=== PATIENT | male | born 1970 | race Caucasian/White ===

== ENCOUNTER → 2019-05-26 13:20 | Outpatient (CLI) | payer BC ==
[~2019-05-26 13:20] MED LIST: PRAVASTATIN SOD10 MG PO
[2019-06-16 12:08] VITALS: BMI 22.6
== END | disposition home or self-care (01) ==
LOC: D.HCCARDIO 13:20
PROVIDERS: ATTEND Internal Medicine Cardiovascular Disease
DX: R94.31 Abnormal electrocardiogram [ECG] [EKG] (principal)

== ENCOUNTER → 2019-06-08 09:30 | Outpatient (CLI) | payer BC ==
[2019-06-16 12:08] VITALS: BMI 22.6
== END | disposition home or self-care (01) ==
LOC: D.HCCARDIO 09:30
PROVIDERS: ATTEND Internal Medicine Cardiovascular Disease
DX: R94.39 Abnormal result of other cardiovascular function study (principal)

== ENCOUNTER 2019-06-16 11:32 | Outpatient (CLI) | payer BC ==
[~2019-06-16] VITALS: Ht 167.6 cm; Wt 63.6 kg
--- NOTE | ~2019-06-16 | HEMODYNAMI ---
PATIENT:LAMONT WHYTE MEDICAL RECORD: [id number] : 70 LOCATION:DRIVER ADMISSION DATE: 06/16/19 Generatedon:06/16/201914:01 Patient name: LAMONT WHYTE Patient #: [id number] SSN: : Date of study: 06/16/2019 Page: Of Hemodynamic Procedure Report Patient Data Patient Demographics Procedure consent was obtained First Name: LAMONT Gender: Male Last Name: PATO : 1970 Patient #: [id number] Age: 48 year(s) Race: Unknown Additional ID: [id number] Contact details Address: [address] [place] [address] State: [place] City: [place] Zip code: [address] Past Medical History Allergies: No known allergies Admission Admission Data Admission Date: 06/16/2019 Admission Time: 11:32 Arrival Date: 06/16/2019 Arrival Time: 0:00 Admit Source: Other Insurance Payor: Private health insurance [facility] #: [id number] Height (in.): 66 BSA: 1.72 (m2) Height (cm.): 167.64 BMI: 22.64 (kg/m2) Weight (lbs.): 140.28 Weight (kg.): 63.63 Lab Results Lab Result Date: 06/16/2019 Lab Result Time: 0:00 Biochemistry Name Units Result Min Max BUN mg/dl 8 --(*---)-- 7 18 Creatinine mg/dl 1 --(--*-)-- 0.6 1.3 eGFR ml/min 85.31057 -*(----)-- 90 120 NONAFRICAN CBC Name Units Result Min Max Hematocrit % 46.5 --(-*--)-- 42 54 Hemoglobin g/dl 16 --(--*-)-- 13.5 17.5 Procedure Procedure Types Cath Procedure Diagnostic Procedure LHC LHC w/Coronaries Procedure Description Procedure Date Procedure Date: 06/16/2019 Procedure Start Time: 13:45 Procedure End Time: 13:58 Procedure Staff Name Function Vel Mckinney MD Performing Physician Sherry Loco RT Monitor Ban Preciado RT Monitor Elsie Lim RN Nurse Binu Chang RT Scrub Procedure Data Cath Procedure Fluoroscopy Diagnostic fluoroscopy Total fluoroscopy Time: 3.4 time: 3.4 min min Diagnostic fluoroscopy Total fluoroscopy dose: 307 dose: 307 mGy mGy Contrast Material Contrast Material Type Amount (ml) Isovue 300 57 Entry Location Entry Primary Successful Side Size Upsize Upsize Entry Closure Coreas ccessful Closure Location (Fr) 1 (Fr) 2 (Fr) Remarks Device Remarks Radial Right 6 Fr Mechanical artery Short Compression Estimated blood loss: 5 ml Diagnostic catheters Device Type Used For End Catheter Placement DIAGNOSTIC Dread 110cm Procedure 5Fr catheter ([id number]) DIAGNOSTIC Pep 110cm 5 Procedure Fr catheter ([id number]) Procedure Complications No complications Procedure Medications Medication Administration Route Dosage Oxygen etCO2 Nasal cannula 2 l/min Lidocaine 2% added to field 20 Heparin Flush Bag added to field 2 bags (1000units/500ml NS) 0.9% NaCl I.V. 100 ml/hr Versed I.V. 2 mg Fentanyl I.V. 50 mcg Versed I.V. 2 mg Fentanyl I.V. 50 mcg Radial Cocktail I.A. 1 syringe (Verapamil 2mg/Nitro 400mcg/Heparin 1500units) Hemodynamics Rest BSA: 1.72 (m2) HGB: 16 (g/dl) O2 Consumption: Estimated: 198.78 (ml/min) O2 Cons umption indexed: Estimated:115.57 (ml/min/m) Heart Rate: 58 (bpm) Pressure Samples Time Site Value (mmHg) Purpose Heart Use Rate(bpm) 13:49 LV 149/-18,-1 Snapshot 105 13:50 AO 110/62(82) Pullback 96 13:50 LV 124/-12,-6 Pullback 96 Gradients Valve Time Site 1 Site 2 Mean SEP/DFP Peak To Heart Use (mmHg) (sec/min) Peak Rate (mmHg) (bpm) Aortic 13:50 LV AO 13 6 14 96 124/-12,-6 110/62(82) Calculations Valve P-P Mean Valve Index Valve Source Name Gradient Area Flow (cm2) Aortic 14 13 14 13 Snapshots Pre Cath Intra NCS Post Cath Vital Signs Time Heart Resp SPO2 etCO2 NIBP (mmHg) Rhythm Pain Sedation Rate (ipm) (%) (mmHg) Status Level (bpm) 13:37:47 62 18 98 29.9 143/92(111) NSR 0 (11) 10(A) , No pain 13:42:00 78 14 98 38.1 130/85(106) NSR 0 (11) 10(A) , No pain 13:46:10 69 17 96 40.4 120/80(108) NSR 0 (11) 10(A) , No pain 13:50:18 85 17 95 19.4 94/68(90) NSR 0 (11) 9(A) , No pain 13:54:20 81 16 93 0 101/66(87) NSR 0 (11) 9(A) , No pain 13:58:24 81 18 95 41.1 103/71(81) NSR 0 (11) 10(A) , No pain Medications Time Medication Route Dose Verified Delivered Reason Notes Effectiveness by by 13:38:45 Oxygen etCO2 2 l/min Vel Buffie used for Nasal Hank Lim RN procedure cannula 13:38:51 Lidocaine 2% added 20ml Vel Vel for local to vial Hank Mckinney MD anesthetic field 13:38:59 Heparin Flush added 2 bags Vel Vel used for Bag to Hank Mckinney MD procedure (1000units/500ml field NS) 13:39:07 0.9% NaCl I.V. 100 Vel Buffie Per ml/hr Hank Lim RN physician 13:43:52 Versed I.V. 2 mg Vel Buffie for sedation Hank Lim RN 13:43:59 Fentanyl I.V. 50 mcg Vel Buffie for sedation Hakn Lim RN 13:47:07 Versed I.V. 2 mg Vel Buffie for sedation Hank Lim RN 13:47:11 Fentanyl I.V. 50 mcg Vel Buffie for sedation Hank Lim RN 13:48:17 Radial Cocktail I.A. 1 Vel Vel for (Verapamil syringe Hank Mckinney MD vasodilation 2mg/Nitro 400mcg/Heparin 1500units) Procedure Log Time Note 13:20:19 Elsie Lim RN sent for patient. Start room use. 13:27:52 Admit Source: Other 13:28:16 Procedure Status Elective Heart Cath (OP). 13:28:22 Time tracking: Regular hours (M-F 7:00 - 5:00) 13:28:27 Plan of Care:Hemodynamics will remain stable., Cardiac rhythm will remain stable., Comfort level will be maintained., Respiratory function will remain adequate., Patient/ family verbilizes understanding of procedure., Procedure tolerated without complication., Recovers from procedure without complications.. 13:29:15 Patient received from Pre/Post Procedure Room to CCL 1 Alert and oriented. Tansferred to table in Supine position. 13:29:19 Signed procedure consent form obtained from patient. 13:29:20 Warm blankets applied, and gen hugger turned on for patient comfort. 13:29:21 Correct patient and procedure confirmed by team. 13:29:21 ECG and BP/O2 sat monitors applied to patient. 13:29:54 Pre-procedure instructions explained to patient. 13:29:55 Pre-op teaching completed and patient verbalized understanding. 13:29:58 Family in waiting room. 13:30:00 Patient NPO since Midnight. 13:30:09 Patient allergic to No known allergies 13:32:12 Lab Result : BUN 8 mg/dl 13:32:12 Lab Result : Creatinine 1 mg/dl 13:32:12 Lab Result : eGFR NONAFRICAN 85.22175 ml/min 13:32:12 Lab Result : Hemoglobin 16 g/dl 13:32:12 Lab Result : Hematocrit 46.5 % 13:32:16 Lab results completed and on chart. 13:32:50 Stress Test: yes; abnormal st depression in inferior 13:35:32 Arrival Date: 06/16/2019 12:00:00 AM 13:35:37 Insurance Payor : Private health insurance 13:35:48 Patient Height : 66 inches 13:35:54 Patient Weight : 140.28 lbs 13:36:02 Diagnostic Cath Status : Elective 13:36:33 Risk of Mortality: .1 13:36:36 Risk of blood transfusion: .9 13:36:39 Risk of CHARLY: 1.5 13:36:46 Vital chart was started 13:36:48 Baseline sample Acquired. 13:36:50 Full Disclosure recording started 13:36:58 Is the patient allergic to Iodine/contrast media? No. 13:36:59 Was the patient premedicated? Yes 13:37:01 Is patient on blood thinner?No 13:37:04 Patient diabetic? No. 13:37:06 If diabetic: On Metformin? N/A 13:37:12 Previous problem with sedation/anesthesia? No ? 13:37:13 Snore? Yes 13:37:14 Sleep apnea? No 13:37:16 Deviated septum? No 13:37:17 Opens mouth fully? Yes 13:37:18 Sticks out tongue? Yes 13:37:20 Airway obstruction? No ? 13:37:22 Dentures? No ? 13:37:30 Pre procedure: right dorsailis pedis pulse 2+ Normal; easily identifiable; not easily obliterated 13:37:33 Patient pain scale 0/10 ?. 13:37:36 Modified Kwasi's test Ulnar < 7 seconds 13:38:08 IV patent on arrival in left antecubital with 0.9% NaCl at [facility]. 13:38:17 Right Radial & Right Groin area was prepped with chlora-prep and draped in sterile fashion 13:38:20 Alarms reviewed by R. N. 13:38:20 Sharps counted by scrub and verified by R.N. 13:38:41 ACC Patient presents with No angina; no symptoms CCS Anginal Class 1--Ordinary physical activity does not cause angina, angina occurs with strenuos, rapid, or prolonged activity.. 13:38:45 Oxygen 2 l/min etCO2 Nasal cannula was administered by Elsie Lim RN; used for procedure; Verbal order read back and verified. 13:38:51 Lidocaine 2% 20ml vial added to field was administered by Vel Mckinney MD; for local anesthetic; Verbal order read back and verified. 13:38:57 Rhythm: sinus rhythm 13:38:59 Heparin Flush Bag (1000units/500ml NS) 2 bags added to field was administered by Vel Mckinney MD; used for procedure; Verbal order read back and verified. 13:39:07 0.9% NaCl 100 ml/hr I.V. was administered by Elsie Lim RN; Per physician; Verbal order read back and verified. 13:39:09 Use device set Radial Dx or PCI 13:39:11 ACIST Syringe (45931) opened to sterile field. 13:39:12 Medline Cath Pack ([id number]) opened to sterile field. 13:39:13 Bag Decanter () opened to sterile field. 13:39:14 ACIST Hand Control (09440) opened to sterile field. 13:39:15 ACIST Manifold (72359) opened to sterile field. 13:39:18 Tegaderm 4 x 4 (1626W) opened to sterile field. 13:39:19 MBrace Wrist Support ([id number]) opened to sterile field. 13:39:24 NEEDLE Cook 21G 4cm Radial (T86700) opened to sterile field. 13:39:25 EMERALD Guide Wire (163-753) opened to sterile field. 13:39:27 SHEATH 6FR RAIN (6971829) opened to sterile field. 13:42:47 --------ALL STOP TIME OUT------ 13:42:48 Final Timeout: patient, procedure, and site verified with staff and physician. All members of the team are in agreement. 13:42:50 Right Radial & Right Groin site verified by team. 13:42:53 Fire Safety Assessment: A--An alcohol-based skin anteseptic being used preoperatively., C--Open oxygen or nitrous oxide is being used., D--An ESU, laser, or fiber-optic light is being used. 13:42:57 Physical assessment completed. ASA score P 2 - A patient with mild systemic disease as per Vel Mckinney MD. 13:43:00 2) 60-89 Mildly reduced kidney function, and other findings (as for stage 1) point to kidney disease. 13:43:05 Maximum allowable contrast dose (3.7 X eGFR X 0.75)236 ml. 13:43:09 Sedation plan: IV Moderate Sedation Medication:Versed, Fentanyl 13:43:52 Versed 2 mg I.V. was administered by Elsie Lim RN; for sedation; Verbal order read back and verified. 13:43:59 Fentanyl 50 mcg I.V. was administered by Elsie Lim RN; for sedation; Verbal order read back and verified. 13:45:35 Procedure started. 13:45:56 Local anesthetic to right radial artery with Lidocaine 2% by Vel Mckinney MD.INITIAL ACCESS ONLY 13:46:39 Zero performed for pressure channel P1 13:47:07 Versed 2 mg I.V. was administered by Elsie Lim RN; for sedation; Verbal order read back and verified. 13:47:11 Fentanyl 50 mcg I.V. was administered by Elsie Lim RN; for sedation; Verbal order read back and verified. 13:47:15 Zero performed for pressure channel P1 13:47:39 A 6 Fr Short sheath was inserted into the Right Radial artery 13:47:50 A DIAGNOSTIC Dread 110cm 5Fr catheter (611254) was advanced over the wire and used for Procedure. 13:48:17 Radial Cocktail (Verapamil 2mg/Nitro 400mcg/Heparin 1500units) 1 syringe I.A. was administered by Vel Mckinney MD; for vasodilation; Verbal order read back and verified. 13:48:46 LV gram done using MILLS 13:48:49 Injector settings: Ml/sec: 5, Volume: 15, 13:49:52 LV hemodynamics recorded. 13:50:06 EF : 60 % 13:50:59 RCA angiography performed. 13:52:50 Catheter exchanged over wire. 13:53:05 UNABLE TO ENGAGE LCA 13:53:09 A DIAGNOSTIC Pep 110cm 5 Fr catheter (667897) was advanced over the wire and used for Procedure. 13:54:12 LCA angiography performed. 13:55:08 Catheter removed. 13:55:11 ACCDominant side:Right 13:55:27 ZEPHYR REGULAR TR BAND (771238) opened to sterile field. 13:55:42 Sheath removed intact; hemostasis achieved with Mechanical Compression to the Right Radial artery. 13:55:46 Procedure ended.(Physican Out) 13:56:24 Fluoroscopy time 03.40 minutes. 13:56:29 Fluoroscopy dose: 307 mGy 13:56:29 Flurop Dose total: 307 13:56:35 Dose Area Product 73546 mGy/cm. 13:56:39 Contrast amount:Isovue 300 57ml. 13:56:41 Maximum allowable dose exceeded? No. 13:56:43 Sharps counted by scrub and verified by R.N. 13:56:46 Liberty band inflated with 10cc of air. 13:56:56 Post Procedure Pulses reassessed and unchanged 13:57:01 Post procedure: right dorsailis pedis pulse 2+ Normal; easily identifiable; not easily obliterated. 13:57:08 Post procedure rhythm: unchanged. 13:57:12 Estimated blood loss: 5 ml 13:57:20 Post procedure instruction explained to patient.Patient verbalizes understanding. 13:57:21 Patient needs reinforcement of post procedure teaching. 13:58:07 Procedure and supply charges have been captured, reviewed, submitted and are correct. 13:58:12 Procedure Complication : No complications 13:58:14 Vital chart was stopped 13:58:17 [facility] Findings: mild to moderate CAD (<70%) 13:58:19 Operative report dictated upon procedure completion. 13:58:19 See physician's report for complete and final results. 13:58:22 Report given to Pre/Post Procedure Room. 13:58:25 Patient transfered to Pre/Post Procedure Room with Stretcher. 13:58:28 Procedure ended. 13:58:28 Full Disclosure recording stopped 13:59:33 End room use (Document Last) 14:00:36 End room use (Document Last) 14:00:54 End room use (Document Last) Device Usage Item Name Manufacture Quantity Catalog Hospital Part Current Minima l Lot# / Number Charge Number Stock Stock Serial# Code ACIST Acist 1 79524 166593 316138 [id number] 20 Syringe Medical (90622) Systems Inc Medline Medline 1 [id number] 498511 71949 216291 5 Cath Pack ([id number]) Bag Microtek 1 222971 02348 524859 5 Decanter Medical Inc. () ACIST Hand Acist 1 51679 069244 577100 948843 5 Control Medical (05360) Systems Inc ACIST Acist 1 17096 641272 567383 648240 5 Manifold Medical (98477) Systems Inc Tegaderm 4 3M 1 1626W 719223 847676 646371 5 x 4 (1626W) MBrace Advanced 1 140-0250-00 474379 96631 511912 5 Wrist Vascular Support Dynamics ([id number]) NEEDLE Cook Cook Medical 1 R12545 843608 604737 438099 5 21G 4cm Radial (C52927) EMERALD Cardinal 1 502-455 216363 736965 102655 5 Guide Wire [facility] (495-072) SHEATH 6FR Cardinal 1 2981180 134676 7694346 419149 5 [facility] (4751009) DIAGNOSTIC Terumo 1 40-8771 614599 210844 999218 5 Dread 110cm 5Fr catheter (038563) DIAGNOSTIC Terumo 1 40-7343 310726 169933 983945 5 Pep 110cm 5 Fr catheter (501802) ZEPHYR Cardinal 1 571164 125704 3882377 685034 5 REGULAR TR Health BAND (034848) Signature Audit [place] Stage Time Signature Unsigned Intra-Procedure 06/16/2019 Ban Preciado 2:00:36 PM RT(R) Intra-Procedure 06/16/2019 Elsie Lim RN 2:00:54 PM Intra-Procedure 06/16/2019 Vel Mckinney MD 2:01:12 PM [facility] [address] [facility] [place] [address]
[2019-06-16] MEDS ORDERED: PRAVASTATIN SOD10 MG PO (11:55)
[2019-06-16 12:08] VITALS: BP 158/86; Ht 167.6 cm; Wt 63.6 kg
[2019-06-16 12:25] LABS: EOSINOPHILS 3.6 % (0-7); HEMATOCRIT 46.5 % (42.0-54.0); IMMATURE GRANULOCYTES 0.2 % (0-5); LYMPHOCYTES 37.8 % (15-50); MCH 32.6 pg (26.0-34.0); MCHC 34.4 g/dL (31.0-37.0); MCV 94.7 fL (80.0-100.0); MEAN PLATELET VOLUME 10.5 fL (7.4-10.4); MONOCYTES 7.7 % (2-11); NEUTROPHILS 48.7 % (40-80); PLATELET COUNT 244 10x3/uL (130-400); RBC 4.91 10x6/uL (4.20-6.10); RDW 12.6 % (11.5-14.5); WBC 8.1 10x3/uL (4.8-10.8)
[2019-06-16 12:29] LABS: CALC OSMOLALITY 275 mosm/kg (275-300); CALCIUM 9.4 mg/dL (8.5-10.1); CHLORIDE - SERUM 102 mmol/L (98-107); GLUCOSE 105 mg/dL (74-106); POTASSIUM - SERUM 4.3 mmol/L (3.5-5.1); SODIUM 139 mmol/L (136-145); UREA NITROGEN 8 mg/dL (7-18); eGFR NON AFRICAN AMERICAN 85 mL/min (90-120)
--- NOTE | 2019-06-16 14:10 | NUR ---
PATIENT ARRIVED TO ROOM 3, PLACED ON CM AND 2L NC, VSS. RIGHT Z BAND IN PLACE, NO S/S OF BLEEDING OR HEMATOMA.
--- NOTE | 2019-06-16 14:25 | NUR ---
PHYSICIAN AT BEDSIDE TO UPDATE PATIENT. RIGHT Z BAND IN PLACE, NO S/S OF BLEEDING OR HEMATOMA. NO C/O PAIN, NUMBNESS, OR TINGLING. VSS ON 2L NC. NO N/V.
--- NOTE | 2019-06-16 14:55 | NUR ---
4CC OF AIR REMOVED PER PROTOCOL, NO S/S OF BLEEDING OR HEMATOMA. NO C/O PAIN, NUMBNESS, OR TINGLING. VSS ON ROOM AIR. PATIENT SITTING UP IN BED EATING SANDWICH AND DRINKING SODA, NO N/V.
--- NOTE | 2019-06-16 15:25 | NUR ---
REMAINING AIR REMOVED FROM Z BAND, NO S/S OF BLEEDING OR HEMATOMA. DRESSING APPLIED IS CDI. VSS ON ROOM AIR. PATIENT FINISHED SANDWICH AND DRINK, NO N/V. NO C/O PAIN, NUMBNESS, OR TINGLING.
--- NOTE | 2019-06-16 15:45 | NUR ---
WRITTEN AND VERBAL DISCHARGE INSTRUCTIONS GIVEN TO PATIENT, PATIENT VOICES UNDERSTANDING. VSS ON ROOM AIR. RIGHT DRESSING IS CDI, NO S/S OF BLEEDING OR HEMATOMA. NO C/O PAIN, NUMBNESS, OR TINGLING. IV REMOVED. PATIENT DISCONNECTED FROM MONITORS TO GET DRESSED.
--- NOTE | 2019-06-16 15:55 | NUR ---
PATIENT TRANSPORTED VIA WHEELCHAIR TO CAR WITH SON DRIVING, ALL BELONGINGS WITH PATIENT.
== END 2019-06-16 15:55 ==
LOC: D.CATH 11:32
PROVIDERS: ATTEND Internal Medicine Cardiovascular Disease
DX: I20.9 Angina pectoris, unspecified (principal); R94.30 Abnormal result of cardiovascular function study, unspecified

== ENCOUNTER 2019-08-03 09:20 | Inpatient (IN) | payer BC ==
[~2019-08-03] VITALS: Ht 167.6 cm; Wt 69.6 kg
--- NOTE | ~2019-08-03 | OP ---
PATIENT NAME: LAMONT WHYTE MEDICAL RECORD: [id number] :70 [facility] AD[facility]ION DATE:08/05/19 SURGEON: FLETCHER MARQUEZ MD DATE OF OPERATION: 08/05/2019 SURGEON: Fletcher Marquez MD ANESTHESIA: General endotracheal, Dr. Castelan. OPERATION PERFORMED: Left carotid endarterectomy with patch angioplasty. PREOPERATIVE DIAGNOSIS: Left carotid stenosis, severe. POSTOPERATIVE DIAGNOSIS: Left carotid stenosis, severe. INDICATIONS FOR OPERATION: Severe left internal carotid artery stenosis. FINDINGS AT OPERATION: Severe left internal carotid artery stenosis. There were no EEG changes with clamping or unclamping of the carotid artery. ESTIMATED BLOOD LOSS: Less than 100 cc. DESCRIPTION OF PROCEDURE: After informed consent, adequate preoperative medication evaluation, the patient was brought to the operating room, placed on the table in the supine position. After induction of general endotracheal anesthesia and application of appropriate monitoring devices, the left neck and chest were prepped and draped in a sterile field, utilizing Betadine scrub, alcohol and Betadine solution. Betadine-impregnated drape was also used. An oblique incision was made in the left neck skin crease. Dissection carried down the fascia. Hemostasis maintained with electrocautery. Facial vein was identified and divided. Utilizing sharp dissection, the common carotid, internal and external carotid arteries were dissected free from surrounding structures, protecting the neurological structures. The patient was given a calculated dose of heparin, after 3 minutes, clamps were applied. After 2 minutes, another EEG change. The arteriotomy was made and extended with Seals scissors. Artery underwent endarterectomy sharply. Artery underwent extensive debridement and irrigation. Utilizing a CorMatrix vascular patch, a running 7-0 Prolene suture, the arteriotomy was closed with patch angioplasty technique. All maneuvers to remove trapped air were performed. The clamps removed sequentially. There were no EEG changes. The patient was given a calculated dose of protamine to reverse the heparin. Hemostasis was achieved. A #7 Raz-Duke drain was left in the depths of wound and brought through the base of the neck. Neck was again irrigated. Instrument count and sponge count were correct times 2. Neck was closed in layers utilizing 3-0 Vicryl on the platysma, 5-0 subcuticular Monocryl on the skin. Sterile dressings were applied. The patient tolerated the procedure well and was transferred to the ICU in satisfactory condition. TRANSINT:[id number] Voice Confirmation ID: [id number] DOCUMENT ID: [id number] OPERATIVE REPORT [id number] LAMONT WHYTE EDWARD MD CC: [id number] DICTATION DATE: 08/05/191511 RECRUITMENT MANAGER: 08/06/19 0054 ADM IN [place] [address] [place] [address]
[2019-08-03 10:59] LABS: HEMATOCRIT 45.4 % (42.0-54.0); HEMOGLOBIN 15.8 g/dL (13.5-17.5); MCH 32.5 pg (26.0-34.0); MCHC 34.8 g/dL (31.0-37.0); MCV 93.4 fL (80.0-100.0); MEAN PLATELET VOLUME 10.5 fL (7.4-10.4); RBC 4.86 10x6/uL (4.20-6.10); RDW 12.6 % (11.5-14.5); WBC 7.2 10x3/uL (4.8-10.8)
[2019-08-03 11:10] LABS: INR 1.09 (0.85-1.17); PROTIME 13.6 SECONDS (11.6-15.0)
[2019-08-03 11:12] LABS: ALBUMIN 4.3 g/dL (3.4-5.0); ALKALINE PHOSPHATASE 54 U/L (46-116); ALT (SGPT) 30 U/L (10-68); BILIRUBIN - TOTAL 0.55 mg/dL (0.2-1.3); CALC OSMOLALITY 271 mosm/kg (275-300); CALCIUM 9.5 mg/dL (8.5-10.1); CARBON DIOXIDE 27.5 mmol/L (21.0-32.0); CHLORIDE - SERUM 100 mmol/L (98-107); CREATININE - SERUM 0.8 mg/dL (0.6-1.3); GLUCOSE 102 mg/dL (74-106); POTASSIUM - SERUM 4.5 mmol/L (3.5-5.1); PROTEIN - SERUM 8.2 g/dL (6.4-8.2); SODIUM 137 mmol/L (136-145); UREA NITROGEN 6 mg/dL (7-18); eGFR NON AFRICAN AMERICAN > 90 mL/min (90-120)
[2019-08-03 12:20] LABS: APPEARANCE CLEAR (CLEAR); BILIRUBIN NEGATIVE (NEGATIVE); COLOR YELLOW (YELLOW); GLUCOSE NEGATIVE (NEGATIVE); KETONE NEGATIVE (NEGATIVE); NITRITE NEGATIVE (NEGATIVE); PROTEIN NEGATIVE (NEGATIVE); UROBILINOGEN NORMAL (NORMAL)
[2019-08-05] VITALS (32 sets, daily range): BP systolic 94–144; BP diastolic 51–87; Ht 167.6 cm; Wt 69.6 kg
--- NOTE | 2019-08-05 19:00 | NUR ---
Received pt from off going RN. Pt is laying in bed watching TV at this time. Pt denies needs at this time. Shift assessment completed, see flowsheet for details. No s/s of distress noted. Will continue to monitor closely.
--- NOTE | 2019-08-05 21:00 | NUR ---
Pt is laying in bed watching TV at this time. Pt denies any needs. No s/s of distress. Will continue to monitor.
--- NOTE | 2019-08-05 23:00 | NUR ---
Reassessment completed, see flowsheet for details. Pt is laying in bed watching TV at this time. Pt denies needs currently. No s/s of distress noted. Will continue to monitor.
[2019-08-06] VITALS (19 sets, daily range): BP systolic 86–141; BP diastolic 50–84
--- NOTE | 2019-08-06 01:00 | NUR ---
Pt is laying in bed with eyes closed. Pt has not voiced any needs, no needs noted at this time. No s/s of distress. Will continue to monitor.
--- NOTE | 2019-08-06 03:00 | NUR ---
Reassessment completed, see flowsheet for details. Pt is laying in bed with eyes closed at this time. No needs voiced. No s/s of distress. Will continue to monitor.
--- NOTE | 2019-08-06 05:00 | NUR ---
Pt is laying in bed with eyes closed at this time. No needs voiced or noted. No s/s of distress. Will continue to monitor.
--- NOTE | 2019-08-06 07:30 | NUR ---
SHIFT ASSESSMENT COMPLETE. PT A&O AWAITING BREAKFAST. DENIES NEEDS. DENIES PAIN. FRESH COFFEE PROVIDED. CALL LIGHT IN REACH
--- NOTE | 2019-08-06 11:28 | NUR ---
SEN CATHETER, RIGHT RADIAL ART LINE AND CVP MONITORING HAVE ALL BEEN DISCONNECTED.
--- NOTE | 2019-08-06 11:50 | NUR ---
PT ASSISTED UP TO CHAIR FOR LUNCH. NO DIFFICULTY. STEADY.
[2019-08-06] MEDS ORDERED: ASPIRIN81 MG PO (16:05)
[2019-08-06] MEDS ORDERED: PLAVIX75 MG PO (16:05)
--- NOTE | 2019-08-06 17:51 | NUR ---
1710 CVL DCD PER PROTOCOL
--- NOTE | 2019-08-06 17:56 | NUR ---
REVIEWED DC INSTRUCTIONS WITH PT AND FAMILY, DENY QUESTIONS, ASSISTED TO CAR AND DCD [id number]
--- NOTE | 2019-08-06 19:38 | MORECARE ---
CASE MANAGEMENT DISCHARGE SUMMARY PATIENT: LAMONT WHYTE UNIT: [id number] ADM DATE: 08/05/19 AGE: 48 : [birth year] SEX: M ROOM/BED: [facility] AUTHOR: DAVIDE,DOC PHYSICIAN: REFERRING PHYSICIAN: GAVI MARQUEZ MD DATE OF SERVICE: 08/06/19 Discharge Plan Patient Name: LAMONT WHYTE Facility: [facility]:[place] : 1970 Planned Disposition: Anticipated Discharge Date: Discharge Date: 08/06/2019 Expected LOS: Initial Reviewer: [email or web address] Initial Review Date: 08/06/2019 Generated: 08/06/19 8:37 pm Comments DCP- Discharge Planning Updated by [email or web address]: Rosa Wade on 08/06/19 6:[address] Patient Name: LAMONT WHYTE Admission Status: Elective Accout number: [id number] Admission Date: 08-05-2019 : 1970 Admission Diagnosis: Attending: GAVI MARQUEZ Current LOS: 1 Anticipated DC Date: Planned Disposition: Primary Insurance: [employer] CROSS FEP Discharge Planning Comments: CM met with patient at bedside after explaining CM role and obtaining verbal consent. Patient lives at home with his where he is independent with his care and plans to return there upon discharge. Patient feels this would be a safe discharge. CM discussed availability / needs of home health and medical equipment. Patient denies any discharge needs at this time. Patient states he will have his family drive him home upon discharge. CM will continue to follow and assist as needed with discharge planning / needs. Pizza Delivery Driver: Rosa Wade DCPIA - Discharge Planning Initial Assessment Updated by [email or web address]: Rosa Wade on 08/06/19 7:36 pm * Is the patient Alert and Oriented? Yes * Pharmacy [facility] * Preadmission Environment Home with Family * ADLs Independent * Equipment None * List name and contact numbers for known caregivers / representatives who currently or will assist patient after discharge: LACI PATO - SPOUSE - [phone] AYAZ PATO Siegel SON- [phone] * Verbal permission to speak to the caregivers and representatives has been obtained from the patient. Yes * Community resources currently utilized None * Additional services required to return to the preadmission environment? No * Can the patient safely return to the preadmission environment? Yes * Has this patient been hospitalized within the prior 30 days at any hospital? No Patient Name: LAMONT WHYTE Page 16810 at 1938 All edits/amendments must be made on the electronic document DICTATION DATE: 08/06/191936 BALL POINT SPLITTER: YOLANDA 08/06/191936 RPT#: [id number] DC DATE:08/06/19 STATUS: DIS IN [facility] [address] [place] [address] END OF REPORT
--- NOTE | 2019-08-06 19:45 | MORECARE ---
CASE MANAGEMENT DISCHARGE SUMMARY PATIENT: LAMONT WHYTE UNIT: [id number] ADM DATE: 08/05/19 AGE: 48 : 70 SEX: M ROOM/BED: D[facility] AUTHOR: DAVIDE,DOC PHYSICIAN: REFERRING PHYSICIAN: GAVI MARQUEZ MD DATE OF SERVICE: 08/06/19 Discharge Plan Patient Name: LAMONT WHYTE Facility: [facility]:[place] : 1970 Planned Disposition: Anticipated Discharge Date: Discharge Date: 08/06/2019 Expected LOS: Initial Reviewer: [email or web address] Initial Review Date: 08/06/2019 Generated: 08/06/19 8:44 pm Comments DCP- Discharge Planning Updated by [email or web address]: Rosa Wade on 08/06/19 6:[address] Patient Name: LAMONT WHYTE Admission Status: Elective Accout number: [id number] Admission Date: 08-05-2019 : 1970 Admission Diagnosis: Attending: GAVI MARQUEZ Current LOS: 1 Anticipated DC Date: Planned Disposition: Primary Insurance: [employer] CROSS FEP Discharge Planning Comments: CM met with patient at bedside after explaining CM role and obtaining verbal consent. Patient lives at home with his where he is independent with his care and plans to return there upon discharge. Patient feels this would be a safe discharge. CM discussed availability / needs of home health and medical equipment. Patient denies any discharge needs at this time. Patient states he will have his family drive him home upon discharge. CM will continue to follow and assist as needed with discharge planning / needs. Instructional Support Specialist: Rosa Wade DCPIA - Discharge Planning Initial Assessment Updated by [email or web address]: Rosa Wade on 08/06/19 7:36 pm * Is the patient Alert and Oriented? Yes * Pharmacy [facility] * Preadmission Environment Home with Family * ADLs Independent * Equipment None * List name and contact numbers for known caregivers / representatives who currently or will assist patient after discharge: LACI PATO - SPOUSE - [phone] AYAZ PATO Siegel SON- [phone] * Verbal permission to speak to the caregivers and representatives has been obtained from the patient. Yes * Community resources currently utilized None * Additional services required to return to the preadmission environment? No * Can the patient safely return to the preadmission environment? Yes * Has this patient been hospitalized within the prior 30 days at any hospital? No Last DP export: 08/06/19 6:38 pm Patient Name: LAMONT WHYTE Page [id number] at 1945 All edits/amendments must be made on the electronic document DICTATION DATE: 08/06/191943 [place] OPERATOR: YOLANDA 08/06/191943 RPT#: [id number] DC DATE:08/06/19 STATUS: DIS IN [facility] [address] [place] [address] END OF REPORT
== END 2019-08-06 18:57 | disposition home or self-care (01) | DRG 39 ==
LOC: D.SDCHOLD 08-05 07:15 → D.CVICU 08-05 07:15 → D.MS 08-05 11:15 → D.CVICU 08-05 15:11
PROVIDERS: ADMIT Internal Medicine Cardiovascular Disease; ATTEND Internal Medicine Cardiovascular Disease
PROC: 03UL0JZ Supplement Left Internal Carotid Artery with Synthetic Substitute, Open Approach (ICD-10-PCS; 2019-08-05)
PROC: 03CL0ZZ Extirpation of Matter from Left Internal Carotid Artery, Open Approach (ICD-10-PCS; principal; 2019-08-05 11:15)
DX: I65.22 Occlusion and stenosis of left carotid artery (principal); E78.5 Hyperlipidemia, unspecified

== ENCOUNTER → 2021-01-06 13:33 | Outpatient (CLI) | payer BC ==
[2019-08-05 15:45] VITALS: BMI 22.9
[~2021-01-06 13:33] MED LIST changes: +ASPIRIN81 MG PO; +PLAVIX75 MG PO
== END | disposition home or self-care (01) ==
LOC: D.US 13:33
PROVIDERS: ATTEND Internal Medicine Interventional Cardiology
DX: I65.29 Occlusion and stenosis of unspecified carotid artery (principal)